=== PATIENT | female | born 1985 | race Two or more races ===

== ENCOUNTER 2017-05-24 08:22 | Outpatient (CLI) | payer OTHER | END 2017-05-24 08:34 | disposition home or self-care (01) | LOC: SONOGRAMA 08:22 → MAMO-SONO 08:45 | DX: R10.84 Generalized abdominal pain (principal) ==

== ENCOUNTER 2017-06-09 07:04 | Outpatient (CLI) | payer OTHER | END 2017-06-09 07:32 | disposition home or self-care (01) | LOC: NUCLEAR 07:04 | DX: K81.1 Chronic cholecystitis (principal) | CPT/HCPCS: 78227; A9537; J2805 ==

== ENCOUNTER 2017-11-14 19:56 | Emergency (ER) | payer OTHER ==
[~2017-11-14] VITALS: Ht 142.2 cm; Wt 48.5 kg
== END 2017-11-14 21:32 | disposition home or self-care (01) ==
LOC: ER 19:56
DX: B34.9 Viral infection, unspecified (principal)

== ENCOUNTER 2025-04-06 07:05 | Outpatient (CLI) | payer OTHER | END 2025-04-06 07:06 | disposition home or self-care (01) | LOC: NUCLEAR 07:05 | PROVIDERS: ATTEND Internal Medicine Gastroenterology | DX: K82.9 Disease of gallbladder, unspecified (principal) ==